=== PATIENT | female | born 1990 | race Two or more races ===

== ENCOUNTER 2025-07-21 09:53 | Emergency (ER) | payer OTHER ==
[~2025-07-21] VITALS: Ht 172.7 cm; Wt 105.7 kg
[2025-07-21] MEDS ORDERED: NORFLEX100MG PO (10:09)
[2025-07-21 10:11] VITALS: O2SAT 99
[2025-07-21] MEDS ORDERED: DEXAMETHASONE SODIUM PHOSPHATE 4 MG/ML VIAL IM STA (10:19)
[2025-07-21] MEDS ORDERED: ORPHENADRINE CITRATE 30 MG/ML AMPUL IM STA (10:19)
[2025-07-21] MEDS ORDERED: KETOROLAC TROMETHAMINE 60 MG VIAL IM STA (10:19)
[2025-07-21] MEDS ORDERED: ORPHENADRINE CITRATE 30 MG/ML AMPUL ONE (10:23)
[2025-07-21] MEDS ORDERED: KETOROLAC TROMETHAMINE 60 MG VIAL IM ONE (10:23)
[2025-07-21] MEDS ORDERED: DEXAMETHASONE SODIUM PHOSPHATE 4 MG/ML VIAL ONE (10:23)
[2025-07-21 11:57] LABS: BASO % 0.4 % (0.1-1.2); EOS # 0.13 (0.04-0.54); EOS % 1.5 % (0.7-7.0); LYMPH # 2.64 (1.18-3.74); LYMPH % 29.5 % (19.3-53.1); MEAN PLATELET VOLUME 10.40 fl (9.4-12.4); MONO # 0.50 (0.24-0.82); MONO % 5.6 % (4.7-12.5); NEUT # 5.64 (1.56-6.13); NEUT % 62.9 % (34.0-71.1); RED CELL DISTRIBUTION WIDTH 13.7 % (11.6-14.4)
[2025-07-21] MEDS ORDERED: METAXALONE800 MG PO (13:01)
[2025-07-21] MEDS ORDERED: NABUMETONE500 MG PO (13:01)
[2025-07-21] MEDS ORDERED: MEDROLPACK PO (13:01)
[2025-07-21 15:09] VITALS: BP 120/79
== END 2025-07-21 15:10 | disposition home or self-care (01) ==
LOC: ER 10:05
PROVIDERS: General Practice
DX: G89.11 Acute pain due to trauma (principal); M79.672 Pain in left foot; M54.2 Cervicalgia; Z88.5 Allergy status to narcotic agent

== ENCOUNTER 2025-07-22 13:21 | Outpatient (CLI) | payer OTHER ==
[~2025-07-22 13:21] MED LIST: MEDROLPACK PO; METAXALONE800 MG PO; NABUMETONE500 MG PO; NORFLEX100MG PO
== END 2025-07-22 13:34 | disposition home or self-care (01) ==
LOC: SONOGRAMA 13:21
DX: M79.642 Pain in left hand (principal); M79.672 Pain in left foot

== ENCOUNTER → 2025-11-07 | Emergency (ER) | payer OTHER ==
[~2025-11-07] VITALS: Ht 172.7 cm; Wt 103.4 kg
[~2025-11-07] MED LIST changes: +CYCLOBENZAPRINE10 MG PO; +DEXAMETHASONE SODIUM PHOSPHATE 4 MG/ML VIAL IM ONE; +KETO10TA2 PO; +KETOROLAC TROMETHAMINE 60 MG VIAL IM ONE; +ORPHENADRINE CITRATE 30 MG/ML AMPUL IM ONE
== END | disposition home or self-care (01) ==
LOC: ER 19:53
DX: S93.491A Sprain of other ligament of right ankle, initial encounter (principal); X58.XXXA Exposure to other specified factors, initial encounter; Y93.89 Activity, other specified; Y92.89 Other specified places as the place of occurrence of the external cause; Y99.9 Unspecified external cause status; Z88.8 Allergy status to other drugs, medicaments and biological substances